=== PATIENT | male | born 1990 | race African-American/Black ===

== ENCOUNTER 2020-08-04 18:03 | Emergency (ER) | payer SELFPAY ==
[2020-08-04 18:29] LABS: #Eosinphils 0.2 thou/uL (0.0-0.7); #Lymphocytes 2.1 thou/uL (1.20-3.40); #Monocytes 0.4 thou/uL (0.11-0.59); %Basophils 0.9 % (0.0-1.0); %Eosinophils 5.2 % (0.0-10.0); %Lymphocytes 44.2 % (21.0-51.0); %Neutrophils 41.8 % (42.0-75.0); Hemoglobin 15.4 g/dL (14.0-18.0); Mean Corpuscular HGB CONC 34.5 g/dL (32.0-36.0); Mean Corpuscular Hemoglobin 29.6 pg (27.0-31.0); Mean Corpuscular Volume 85.8 fL (78.0-98.0); Mean Platelet Volume 7.9 fL (7.4-10.4); Platelet Count 248 thou/uL (130-400); RBC Distribution Width 11.5 % (11.5-14.5); Red Blood Cell (RBC) Count 5.21 mill/uL (4.70-6.10); White Blood Cell (WBC) Count 4.9 thou/uL (4.8-10.8)
[2020-08-04 18:56] LABS: ALT (SGPT) 16 U/L (8-55); AST (SGOT) 16 U/L (5-34); Albumin 4.8 g/dL (3.5-5.0); Alkaline Phosphatase 59 U/L (40-110); Anion Gap 14 mmol/L (10-20); BUN (Urea Nitrogen) 11 mg/dL (8.9-20.6); Bilirubin, Total 0.6 mg/dL (0.2-1.2); Calc. Creatinine Clearance 0 mL/min (70-130); Calcium 9.6 mg/dL (7.8-10.44); Carbon Dioxide 24 mmol/L (22-29); Chloride 103 mmol/L (98-107); Estimated GFR-MDRD Greater than 90; Globulin 3.6 g/dL (2.4-3.5); Glucose 89 mg/dL (70-105); Lipase 59 U/L (8-78); Potassium 3.9 mmol/L (3.5-5.1); Protein, Total 8.4 g/dL (6.0-8.3); Sodium 137 mmol/L (136-145)
[2020-08-04] MEDS ORDERED: Mag-Al 1200 mg/1200 mg/30 ML UDCUP ONE (19:12)
[2020-08-04] MEDS ORDERED: Lidocaine Viscous Sol 2% 15 ml UD Cup ONE (19:12)
[2020-08-04] MEDS ORDERED: Ondansetron ODT 4 MG TAB ONE (19:12)
--- NOTE | 2020-08-04 19:40 | RAD ---
XR Abdomen 2 View/1 View Cxr HISTORY: Abdominal pain COMPARISON: None. FINDINGS: The heart size normal. The lungs are clear. No free air or differential fluid levels are se en. The bowel gas pattern is unremarkable. No suspicious calcifications are identified. IMPRESSION: Unremarkable exam
[2020-08-04 20:18] LABS: Bilirubin Negative (Negative); Blood, Urine Negative (Negative); Clarity Clear (Clear); Glucose, Urine (Dipstick) Normal (Negative); Ketone, Urine Negative (Negative); Leukocyte Negative Leu/uL (Negative); Nitrite Negative (Negative); Protein, Urine (Dipstick) Negative (Neg-Trace); Specific Gravity, Urine 1.017 (1.002-1.036); Urobilinogen Normal mg/dL (Less than 2)
== END 2020-08-04 21:42 | disposition home or self-care (01) ==
LOC: ERS 18:03
DX: R10.13 Epigastric pain (principal); I10 Essential (primary) hypertension; F31.9 Bipolar disorder, unspecified; F90.9 Attention-deficit hyperactivity disorder, unspecified type; Z87.891 Personal history of nicotine dependence; Z79.899 Other long term (current) drug therapy
CPT/HCPCS: 36415; 74022; 80053; 81003; 83690; 85025; Q0162

== ENCOUNTER 2020-08-23 18:24 | Emergency (ER) | payer SELFPAY ==
--- NOTE | 2020-08-23 20:26 | RAD ---
[facility] VIEW OF THE SINUSES: 08/23/20 COMPARISON: None. HISTORY: Facial wound around the eye 2.5 weeks ago. FINDINGS: Single view of the sinuses shows partial opacification of the right maxillary sinus. The left maxilla ry sinus and frontal sinuses are well aerated. No radiopaque foreign body is seen. IMPRESSION: Partial opacification of the right maxillary sinus. POS: [facility]
== END 2020-08-23 20:59 | disposition home or self-care (01) ==
LOC: ERS 18:24
DX: T78.40XA Allergy, unspecified, initial encounter (principal); I10 Essential (primary) hypertension; F31.9 Bipolar disorder, unspecified; F90.9 Attention-deficit hyperactivity disorder, unspecified type; Z87.891 Personal history of nicotine dependence; Z79.899 Other long term (current) drug therapy
CPT/HCPCS: 70210

== ENCOUNTER 2020-09-08 18:09 | Emergency (ER) | payer SELFPAY ==
[2020-09-08] MEDS ORDERED: Metoclopramide 10 MG/10 ML UDCUP ONE (20:12)
[2020-09-08] MEDS ORDERED: diphenhydrAMINE 50 MG/ML VIAL ONE (20:12)
[2020-09-08] MEDS ORDERED: Ketorolac Tromethamine 30 MG/ML VIAL ONE (20:12)
[2020-09-08] MEDS ORDERED: Metoclopramide HCl 10 MG/2 ML VIAL ONE (20:13)
--- NOTE | 2020-09-08 20:40 | CT ---
HEAD CT WITHOUT CONTRAST: 09/08/20 COMPARISON: None. HISTORY: Intermittent headaches, prior head trauma. TECHNIQUE: Axial CT imaging at 5 mm intervals from the vertex through the skull base without contrast. FINDINGS: The visualized paranasal sinuses and mastoid air cells are well aerated. No displaced calvarial fract ure is seen. There is no intracranial hemorrhage, midline shift, mass effect or ventricular enlargeme nt. IMPRESSION: No intracranial hemorrhage or displaced calvarial fracture. POS: [facility]
== END 2020-09-08 21:32 | disposition home or self-care (01) ==
LOC: ERS 18:09
DX: J32.9 Chronic sinusitis, unspecified (principal); I10 Essential (primary) hypertension; F90.9 Attention-deficit hyperactivity disorder, unspecified type; F31.9 Bipolar disorder, unspecified; Z87.891 Personal history of nicotine dependence; Z79.899 Other long term (current) drug therapy
CPT/HCPCS: 70450; 96374; 96375; J1200; J1885; J2765

== ENCOUNTER 2020-09-21 20:33 | Emergency (ER) | payer SELFPAY ==
[2020-09-21] MEDS ORDERED: Lidocaine Viscous Sol 2% 15 ml UD Cup ONE (22:32)
[2020-09-21] MEDS ORDERED: Mag-Al 1200 mg/1200 mg/30 ML UDCUP ONE (22:32)
[2020-09-21 22:50] LABS: #Basophils 0.1 thou/uL (0.0-0.2); #Eosinphils 0.1 thou/uL (0.0-0.7); #Lymphocytes 2.1 thou/uL (1.20-3.40); #Monocytes 0.4 thou/uL (0.11-0.59); #Neutrophils 4.2 thou/uL (1.40-6.50); %Basophils 0.8 % (0.0-1.0); %Eosinophils 1.8 % (0.0-10.0); %Lymphocytes 30.2 % (21.0-51.0); %Monocytes 5.8 % (0.0-10.0); %Neutrophils 61.3 % (42.0-75.0); Hemoglobin 14.7 g/dL (14.0-18.0); Mean Corpuscular HGB CONC 34.2 g/dL (32.0-36.0); Mean Corpuscular Hemoglobin 29.5 pg (27.0-31.0); Mean Corpuscular Volume 86.3 fL (78.0-98.0); Mean Platelet Volume 7.3 fL (7.4-10.4); Platelet Count 256 thou/uL (130-400); Red Blood Cell (RBC) Count 4.99 mill/uL (4.70-6.10); White Blood Cell (WBC) Count 6.8 thou/uL (4.8-10.8)
[2020-09-21 23:14] LABS: ALT (SGPT) 23 U/L (8-55); AST (SGOT) 18 U/L (5-34); Albumin 4.5 g/dL (3.5-5.0); Alkaline Phosphatase 69 U/L (40-110); Anion Gap 14 mmol/L (10-20); BUN (Urea Nitrogen) 7 mg/dL (8.9-20.6); Bilirubin, Total 0.6 mg/dL (0.2-1.2); Calc. Creatinine Clearance 0 mL/min (70-130); Calcium 9.7 mg/dL (7.8-10.44); Carbon Dioxide 28 mmol/L (22-29); Chloride 101 mmol/L (98-107); Estimated GFR-MDRD Greater than 90; Globulin 3.9 g/dL (2.4-3.5); Glucose 87 mg/dL (70-105); Lipase 37 U/L (8-78); Potassium 3.7 mmol/L (3.5-5.1); Protein, Total 8.4 g/dL (6.0-8.3); Sodium 139 mmol/L (136-145)
== END 2020-09-21 23:45 | disposition home or self-care (01) ==
LOC: ERS 20:33
DX: R10.12 Left upper quadrant pain (principal); R10.13 Epigastric pain; I10 Essential (primary) hypertension; F31.9 Bipolar disorder, unspecified; F90.9 Attention-deficit hyperactivity disorder, unspecified type; Z79.899 Other long term (current) drug therapy
CPT/HCPCS: 36415; 80053; 83690; 85025; 99284